=== PATIENT | female | born 1960 | race African-American/Black ===

== ENCOUNTER 2017-01-30 19:04 | Emergency (ER) | payer BC ==
[~2017-01-30 19:04] MED LIST: ACTICIN5 % EX; APRES25 PO; ASA5GR PO; ASAB; ASAB PO; ASABAYER PO; ASAEC PO; BENTYL20 PO; CELEXA10 PO; CORICIDI1 PO; CRESTOR40 MG PO; FERROUS SULF325 M1 PO; GLUCXL2.5 PO; INSULIN SC; IRON325 MG PO; LIPITOR40 PO; LOP25 PO; LOP50 PO; METHIMAZOLE10 MG OR; METHIMAZOLE10 MG PO; MVI PO; NICODERM C21 MG/241 TOP; NORV10 PO; OMNICEF300 PO; PERMETHRIN5 %; PHOSLO PO; PLAVIX PO; PRILOSEC40 MG PO; PRIN2.5 PO; PROTONIX20 MG; SODBICAR10 PO; TAPAZOLE10 MG PO; VITAMIN D1000 UNI1 PO; VITAMIN D31000 UNIT; VITAMIN D31000 UNIT PO; ZESTRIL2.5 MG PO
== END 2017-01-30 20:10 | disposition home or self-care (01) ==
LOC: ER 19:04
DX: T82.838A Hemorrhage due to vascular prosthetic devices, implants and grafts, initial encounter (principal); E11.22 Type 2 diabetes mellitus with diabetic chronic kidney disease; I13.0 Hypertensive heart and chronic kidney disease with heart failure and stage 1 through stage 4 chronic kidney disease, or unspecified chronic kidney disease; N18.9 Chronic kidney disease, unspecified; I50.9 Heart failure, unspecified; D63.1 Anemia in chronic kidney disease; E07.9 Disorder of thyroid, unspecified; F17.200 Nicotine dependence, unspecified, uncomplicated; Z79.82 Long term (current) use of aspirin; Z79.899 Other long term (current) drug therapy; Z86.73 Personal history of transient ischemic attack (TIA), and cerebral infarction without residual deficits; Z79.02 Long term (current) use of antithrombotics/antiplatelets
CPT/HCPCS: 71010; 93005; 99284